=== PATIENT | female | born 1975 | race Caucasian/White ===

== ENCOUNTER → 2017-06-14 | Outpatient (CLI) | payer BC ==
[2015-05-02 06:23] VITALS: BP 141/85
--- NOTE | 2017-06-14 18:21 | RAD ---
3 views left foot radiograph 06/14/2017 Clinical indication: Nondisplaced fracture of the fifth metatarsal. Comparison: None. Findings: There is a nondisplaced transverse fracture at the base of the fifth metatarsal 2 cm from the proximal fifth metatarsal tuberosity. Joint spaces are maintained. There is mild soft tissue swelling about the foot. Impression: Nondisplaced transverse fracture at the base of the fifth metatarsal compatible with a Paige type fracture.
== END | disposition home or self-care (01) ==
LOC: RAD 13:27
PROVIDERS: ATTEND Nurse Practitioner Gerontology
DX: S92.355A Nondisplaced fracture of fifth metatarsal bone, left foot, initial encounter for closed fracture (principal); X58.XXXA Exposure to other specified factors, initial encounter; Y93.89 Activity, other specified; Y92.89 Other specified places as the place of occurrence of the external cause; Y99.8 Other external cause status
CPT/HCPCS: 73630

== ENCOUNTER 2019-05-30 07:28 | Emergency (ER) | payer BC ==
[~2019-05-30] VITALS: Ht 167.6 cm; Wt 133.8 kg
[2019-05-30 07:30] VITALS: BP 119/68
[2019-05-30] MEDS ORDERED: ALBU2.5V8 IH (09:04)
[2019-05-30] MEDS ORDERED: GUAI12003 PO (09:04)
[2019-05-30] MEDS ORDERED: AMOX1TAB61 PO (09:04)
--- NOTE | 2019-05-30 09:04 | PHYS DOC ---
Past Medical History Past Medical History: Arthritis Additional Past Medical Histor: PINCHED NERVE IN BACK Past Surgical History: Cholecystectomy Alcohol Use: None Drug Use: None Adult General Chief Complaint Chief Complaint: FLU SYMPTOM HPI HPI Patient is a 43 year old pacer congestion, rhinorrhea with cough for the past several days with persistent fatigue and increased shortness of breath for the past 2-4 days. Patient was diagnosed with flulike illness last week at urgent care. She has not been followed up with primary care physician. She denies grade fever or chest pain. No history of asthma. Patient recently discontinued smoking. Currently on menstrual period. [] Review of Systems Review of Systems Review of symptoms as per history of present illness. All other review symptoms are negative. All other systems were reviewed and found to be within normal limits, except as documented in this note. Allergies Allergies Allergies Coded Allergies Type Severity Reaction Last Updated Verified No Known Drug Allergies 05/02/15 No Physical Exam Physical Exam Constitutional: Well developed, well nourished, no acute distress, non-toxic appearance. [] HENT: Normocephalic, atraumatic, bilateral external ears normal, oropharynx moist, no oral exudates, nose normal. [] Eyes: PERRLA, EOMI, conjunctiva normal, no discharge. [] Neck: Normal range of motion, no tenderness, supple. [] Cardiovascular:Heart rate regular rhythm, no murmur [] Lungs & Thorax: Patient's nonlabored, coarse rales right lower lung mcghee.[] Abdomen: Bowel sounds normal, soft, no tenderness. [] Skin: Warm, dry, no erythema, no rash. [] Back: No tenderness, no CVA tenderness. [] Extremities: No tenderness, no cyanosis, no clubbing, ROM intact, no edema. [] Neurologic: Alert and oriented X 3, normal motor function, normal sensory function, no focal deficits noted. [] Psychologic: Affect normal, judgement normal, mood normal. [] Current Patient Data Vital Signs Vital Signs Date Time Temp Pulse Resp B/P (MAP) Pulse Ox O2 Delivery O2 Flow Rate FiO2 05/30/19 07:30 97.5 97 18 119/68 (85) 95 Room Air 97.5 EKG EKG [] Radiology/Procedures Radiology/Procedures [Chest x-ray: Right middle lobe infiltrate.] Course & Med Decision Making Course & Med Decision Making Pertinent Labs and Imaging studies reviewed. (See chart for details) [Post influenza lower respiratory tract infection. Recommendations are for antibiotics inhaler, Mucinex and PCP follow-up.] Mita Disclaimer Mita Disclaimer This electronic medical record was generated, in whole or in part, using a voice recognition dictation system. Departure Departure Impression: Primary Impression: Pneumonia Disposition: HOME, SELF-CARE Referrals: GEORGE CASH (PCP) Patient Instructions: Pneumonia, Adult Additional Instructions: Chest x-ray was performed and shows right lower lobe pneumonia. Please take antibiotics as directed and use Mucinex for cough and inhaler for shortness of breath. Follow-up with your PCP in 2-3 days for reevaluation. Return to the ED if new or worsening symptoms. Scripts Amoxicillin/Potassium Clav (AUGMENTIN 875-125 TABLET) 1 Each Tablet 1 TAB PO BID for 10 Days, #20 TAB 0 Refills Prov: HADLEY PACKER DO 05/30/19 Albuterol Sulfate (PROAIR HFA INHALER) 8.5 Gm Hfa.aer.ad 2 PUFF IH PRN Q4-6HRS PRN for wheezing for 21 Days, #1 INHALER 0 Refills Prov: HADLEY PACKER DO 05/30/19 Guaifenesin (MUCINEX) 1,200 Mg Tbmp.12hr 1 TAB PO BID for cough for 15 Days, #30 TAB 0 Refills Prov: HADLEY PACKER DO 05/30/19 HADLEY PACKER DO May 30, 2019 09:04
--- NOTE | 2019-05-30 09:35 | RAD ---
PA and lateral chest. HISTORY: Short of air, trouble breathing PA and lateral views were taken of the chest. There is mild atelectasis or infiltrate along the right diaphragm. Heart is normal in size. There is no pleural effusion. There are no other infiltrates. IMPRESSION: 1. Mild right lower lobe atelectasis or infiltrate. Electronically signed by: Winston Hampton MD (05/30/2019 9:32 AM) [id number]
== END 2019-05-30 09:23 | disposition home or self-care (01) ==
LOC: ER 07:28
DX: J18.9 Pneumonia, unspecified organism (principal)
CPT/HCPCS: 71046; 99284

== ENCOUNTER 2021-10-20 06:32 | Emergency (ER) | payer BC ==
[~2021-10-20] VITALS: Ht 167.6 cm; Wt 132.0 kg
[~2021-10-20 06:32] MED LIST: ALBU2.5V8 IH; AMOX1TAB61 PO; GUAI12003 PO
[2021-10-20] MEDS ORDERED: ASPIRIN CHEWABLE 81 MG TABLET. PO ONE (06:45)
[2021-10-20] MEDS ORDERED: IPRATRPIUM/ALBUTEROL 0.5/2.5MG 3 ML NEBU. NEB ONE (06:45)
[2021-10-20] MEDS ORDERED: IOHEXOL 350 MG/ML 100 ML VIAL. IV ONE (07:15)
[2021-10-20] MEDS ORDERED: CONTRAST GIVEN. MC PRN (07:30)
[2021-10-20 08:09] LABS: INFLUENZA A PATIENT NEGATIVE (NEGATIVE); INFLUENZA B PATIENT NEGATIVE (NEGATIVE)
[2021-10-20 08:17] LABS: GFR 59.4; POTASSIUM 4.4 mmol/L (3.5-5.1)
[2021-10-20 08:18] LABS: BASO # 0.1 x10^3/uL (0.0-0.2); BASO % 1 % (0-3); EOS # 0.1 x10^3/uL (0.0-0.7); EOS % 1 % (0-3); HEMATOCRIT 42.7 % (36.0-47.0); HEMOGLOBIN 13.9 g/dL (12.0-15.5); LYMPH # 2.1 x10^3/uL (1.0-4.8); LYMPH % 21 % (24-48); MEAN CORPUSCULAR HEMOGLOBIN 27 pg (25-35); MEAN CORPUSCULAR HGB CONC 33 g/dL (31-37); MEAN CORPUSCULAR VOLUME 84 fL (79-100); MONO # 0.6 x10^3/uL (0.0-1.1); MONO % 6 % (0-9); NEUT # 7.3 x10^3/uL (1.8-7.7); NEUT % 71 % (31-73); PLATELET COUNT 208 x10^3/uL (140-400); RED BLOOD COUNT 5.06 x10^6/uL (3.50-5.40); RED CELL DISTRIBUTION WIDTH 14.6 % (11.5-14.5); WHITE BLOOD COUNT 10.3 x10^3/uL (4.0-11.0)
[2021-10-20 08:23] LABS: ALBUMIN 3.4 g/dL (3.4-5.0); TOTAL BILIRUBIN 0.7 mg/dL (0.2-1.0); TOTAL PROTEIN 6.9 g/dL (6.4-8.2)
--- NOTE | 2021-10-20 09:22 | PHYS DOC ---
Past Medical History Past Medical History: Arthritis Additional Past Medical Histor: PINCHED NERVE IN BACK Past Surgical History: No Surgical History Smoking Status: Current Every Day Smoker Alcohol Use: None Drug Use: None Adult General Chief Complaint Chief Complaint: SHORTNESS OF BREATH HPI HPI Patient is a 45 year old female presents with shortness of breath for the last few days. Patient states that she was placed on antibiotics and steroids but really has not had any improvement. Past history is noted for recent left foot fracture, patient is wearing a walking boot. She has not had any increase in leg pain or leg swelling that she has noticed. She has had a mild nonproductive cough. Some chest discomfort with coughing. No fever. Review of Systems Review of Systems Constitutional: Denies fever Eyes: Denies change in visual acuity or eye pain HENT: Denies sore throat Respiratory: Reports shortness of breath Cardiovascular: Reports mild chest pain GI: Denies abd pain : Denies dysuria Musculoskeletal: Denies back or extremity injury acutely, subacute left foot injury Integument: Denies rash or skin lesions Neurologic: Denies headache, focal weakness or sensory changes All other systems were reviewed and found to be within normal limits, except as documented in this note. Current Medications Current Medications Current Medications Medications (Trade) Dose Ordered Sig/Anna Start Time Stop Time Status Last Admin Dose Admin Albuterol/ Ipratropium (Duoneb) 3 ml 1X ONCE 10/20/21 06:45 10/20/21 06:49 DC 10/20/21 07:16 3 ML Aspirin (Aspirin Chewable) 324 mg 1X ONCE 10/20/21 06:45 10/20/21 06:49 DC 10/20/21 07:19 324 MG Enoxaparin Sodium (Lovenox 150mg Syringe) 130 mg 1X ONCE 10/20/21 09:15 10/20/21 09:16 DC Info (CONTRAST GIVEN -- Rx MONITORING) 1 each PRN DAILY PRN 10/20/21 07:30 10/22/21 07:29 Iohexol (Omnipaque 350 Mg/ml) 100 ml 1X ONCE 10/20/21 07:15 10/20/21 07:22 DC 10/20/21 07:15 80 ML Allergies Allergies Allergies Coded Allergies Type Severity Reaction Last Updated Verified No Known Drug Allergies 10/20/21 No Physical Exam Physical Exam Constitutional: Well developed, well nourished, no acute distress, non-toxic appearance. HENT: Normocephalic, atraumatic, bilateral external ears normal, mucosa moist, nose normal. Eyes: EOMI, conjunctiva normal, no discharge. Neck: Normal range of motion, supple, no stridor, no meningeal signs. Cardiovascular: Regular rate and rhythm Lungs & Thorax: Bilateral breath sounds clear to auscultation Abdomen: Soft, no tenderness or obvious masses Skin: Warm, dry, no erythema, no rash. Extremities: No tenderness, no cyanosis, no clubbing, ROM intact, mild left lower extremity edema. Neurologic: Alert and oriented, normal motor function, normal sensory function, no focal deficits noted. Psychologic: Affect normal, judgement normal, mood normal. Current Patient Data Vital Signs Vital Signs Date Time Temp Pulse Resp B/P (MAP) Pulse Ox O2 Delivery O2 Flow Rate FiO2 10/20/21 07:17 94 Room Air 10/20/21 06:52 98.0 101 24 135/83 (100) 98.0 Lab Values Laboratory Tests Test 10/20/21 07:30 10/20/21 07:55 Influenza Type A Antigen Negative (NEGATIVE) Influenza Type B Antigen Negative (NEGATIVE) SARS-CoV-2 Antigen (Rapid) Negative (NEGATIVE) White Blood Count 10.3 x10^3/uL (4.0-11.0) Red Blood Count 5.06 x10^6/uL (3.50-5.40) Hemoglobin 13.9 g/dL (12.0-15.5) Hematocrit 42.7 % (36.0-47.0) Mean Corpuscular Volume 84 fL (79-100) Mean Corpuscular Hemoglobin 27 pg (25-35) Mean Corpuscular Hemoglobin Concent 33 g/dL (31-37) Red Cell Distribution Width 14.6 % (11.5-14.5) H Platelet Count 208 x10^3/uL (140-400) Neutrophils (%) (Auto) 71 % (31-73) Lymphocytes (%) (Auto) 21 % (24-48) L Monocytes (%) (Auto) 6 % (0-9) Eosinophils (%) (Auto) 1 % (0-3) Basophils (%) (Auto) 1 % (0-3) Neutrophils # (Auto) 7.3 x10^3/uL (1.8-7.7) Lymphocytes # (Auto) 2.1 x10^3/uL (1.0-4.8) Monocytes # (Auto) 0.6 x10^3/uL (0.0-1.1) Eosinophils # (Auto) 0.1 x10^3/uL (0.0-0.7) Basophils # (Auto) 0.1 x10^3/uL (0.0-0.2) Prothrombin Time 14.0 SEC (11.7-14.0) Prothrombin Time INR 1.1 (0.8-1.1) Activated Partial Thromboplast Time 30 SEC (24-38) Sodium Level 140 mmol/L (136-145) Potassium Level 4.4 mmol/L (3.5-5.1) Chloride Level 104 mmol/L (98-107) Carbon Dioxide Level 26 mmol/L (21-32) Anion Gap 10 (6-14) Blood Urea Nitrogen 17 mg/dL (7-20) Creatinine 1.0 mg/dL (0.6-1.0) Estimated GFR (Cockcroft-Gault) 59.4 BUN/Creatinine Ratio 17 (6-20) Glucose Level 125 mg/dL (70-99) H Lactic Acid Level 2.7 mmol/L (0.4-2.0) H Calcium Level 9.0 mg/dL (8.5-10.1) Total Bilirubin 0.7 mg/dL (0.2-1.0) Aspartate Amino Transferase (AST) 17 U/L (15-37) Alanine Aminotransferase (ALT) 24 U/L (14-59) Alkaline Phosphatase 167 U/L (46-116) H Troponin I High Sensitivity 40 ng/L (4-50) RL-Pyp-T-Type Natriuretic Peptide 4829 pg/mL (0-124) H Total Protein 6.9 g/dL (6.4-8.2) Albumin 3.4 g/dL (3.4-5.0) Albumin/Globulin Ratio 1.0 (1.0-1.7) Laboratory Tests 10/20/21 07:55 Laboratory Tests 10/20/21 07:55 EKG EKG Twelve-lead EKG demonstrates sinus rhythm with an overall rate 98. FL, QRS and QT corrected intervals are within normal limits. No ST segment elevation or depression. [] Radiology/Procedures Radiology/Procedures [] Impressions: Contrasted CT of the chest demonstrates bilateral pulmonary emboli Course & Med Decision Making Course & Med Decision Making Pertinent Labs and Imaging studies reviewed. (See chart for details) [] Is a 45-year-old female with dyspnea. CT demonstrates bilateral pulmonary emboli. She was given 132 mg of Lovenox subcu. Initially she [facility], there are no beds available there however. We will keep the patient here and continue to keep her anticoagulated, if things deteriorate then consider thrombolytics or thrombolysis, she is in guarded condition currently. Dragon Disclaimer Dragon Disclaimer This electronic medical record was generated, in whole or in part, using a voice recognition dictation system. Departure Departure Impression: Primary Impression: Pulmonary emboli Disposition: ADMITTED INPATIENT Condition: GUARDED Referrals: REEMA BENNETT III, MD (PCP) CLARY BARNES MD Oct 20, 2021 09:22
--- NOTE | 2021-10-20 09:43 | RAD ---
INDICATION: Reason: dyspnea, leg injury / Spl. Instructions: IV omni 350 80mls / History: COMPARISON: May 2019 chest x-ray TECHNIQUE: Axial CT images obtained through the chest. Intravenous contrast utilized. Angiogram 3D images proce ssed per protocol. One or more of the following individualized dose reduction techniques were utilized for this examinat ion: 1. Automated exposure control; 2. Adjustment of the mA and/or kV according to patient size; 3 . Use of iterative reconstruction technique. FINDINGS: Patchy nodular and groundglass opacities bilaterally. Large bilateral pulmonary embolus extending into the distal aspect of the bilateral main pulmonary ar teries. Proximal aspect of the right internal carotid artery is not well seen secondary to artifact extending through the region. Portion of ascending thoracic aorta limited by motion but no aneurysm or dissect ion flap in visualized portion. Suspected small hiatal hernia. There is some wall thickening of the distal esophagus. Degenerative changes of the spine. IMPRESSION: Large bilateral pulmonary embolus. Patchy nodular groundglass opacities in the bilateral lungs. Given the embolus its possible that a po rtion of this is secondary to pulmonary infarct but would also correlate with infectious symptoms sin ce infection could have this appearance as well. Additionally would obtain a follow-up after treatmen t to ensure this resolves to exclude any neoplastic nodule. Small hiatal hernia. There is wall thickening of the distal esophagus and hiatal hernia with possible causes including reflux or distal esophagitis but a distal esophageal wall mass cannot be excluded o n this examination. There is artifact at the neck base from the contrast bolus with no definite contrast seen within the lumen of the proximal right internal carotid artery but this is in the region of artifact. It may be helpful to obtain a carotid ultrasound to further assess and ensure that this is artifactual in natur e rather than from a high-grade stenosis or focal occlusion. Report called to the ER at 8:55 AM on date of exam. Electronically signed by: Bk Pritchard MD (10/20/2021 8:59 AM) [id number]
[2021-10-20] MEDS ORDERED: ACETAMINOPHEN 325 MG TABLET. PO PRN (10:45)
[2021-10-20] MEDS ORDERED: ONDANSETRON PF 4 MG/2 ML VIAL. IVP PRN (10:45)
[2021-10-20] MEDS ORDERED: fentaNYL PF VIAL 100 MCG/2 ML VIAL IVP PRN (10:45)
[2021-10-20] MEDS ORDERED: guaiFENesin DM 200MG/20MG 10 ML SYRUP PO PRN (10:45)
[2021-10-20] MEDS ORDERED: traMADol 50 MG TABLET PO PRN (10:45)
[2021-10-20] MEDS ORDERED: hydrALAZINE 20 MG/ML VIAL. IVP PRN (10:45)
--- NOTE | 2021-10-20 10:47 | PDOC1 ---
History and Physical Date of Admission Date of Admission DATE: 10/20/21 TIME: 10:46 Identification/Chief Complaint Chief Complaint Chest pain Source Source: Patient History of Present Illness History of Present Illness is a 45 year old female presents with shortness of breath for the last few days. Patient states that she was placed on antibiotics and steroids but really has not had any improvement. Past history is noted for recent left foot fracture, patient is wearing a walking boot. She has not had any increase in leg pain or leg swelling that she has noticed. She has had a mild nonproductive cough. Some chest discomfort with coughing. No fever. Current Problem List Problem List Problems Medical Problems: (1) Pulmonary emboli Status: Acute Current Medications Current Medications Current Medications Albuterol/ Ipratropium (Duoneb) 3 ml 1X ONCE NEB Last administered on 10/20/21at 07:16; Start 10/20/21 at 06:45; Stop 10/20/21 at 06:49; Status DC Aspirin (Aspirin Chewable) 324 mg 1X ONCE PO Last administered on 10/20/21at 07:19; Start 10/20/21 at 06:45; Stop 10/20/21 at 06:49; Status DC Iohexol (Omnipaque 350 Mg/ml) 100 ml 1X ONCE IV Last administered on 10/20/21at 07:15; Start 10/20/21 at 07:15; Stop 10/20/21 at 07:22; Status DC Info (CONTRAST GIVEN -- Rx MONITORING) 1 each PRN DAILY PRN MC SEE COMMENTS; Start 10/20/21 at 07:30; Stop 10/22/21 at 07:29 Enoxaparin Sodium (Lovenox 150mg Syringe) 130 mg 1X ONCE SQ Last administered on 10/20/21at 09:29; Start 10/20/21 at 09:15; Stop 10/20/21 at 09:16; Status DC Active Scripts Active Augmentin 875-125 Tablet (Amoxicillin/Potassium Clav) 1 Each Tablet 1 Tab PO BID 10 Days Proair Hfa Inhaler (Albuterol Sulfate) 8.5 Gm Hfa.aer.ad 2 Puff IH PRN Q4-6HRS PRN 21 Days Mucinex (Guaifenesin) 1,200 Mg Tbmp.12hr 1 Tab PO BID 15 Days Allergies Allergies: Coded Allergies: No Known Drug Allergies (Unverified , 3/22/22) Vitals Vitals Vital Signs Date Time Temp Pulse Resp B/P (MAP) Pulse Ox O2 Delivery O2 Flow Rate FiO2 10/20/21 09:42 92 96/61 (73) 95 Nasal Cannula 3.0 10/20/21 06:52 98.0 24 98.0 Labs Labs Laboratory Tests Test 10/20/21 07:30 10/20/21 07:55 Influenza Type A Antigen Negative (NEGATIVE) Influenza Type B Antigen Negative (NEGATIVE) SARS-CoV-2 Antigen (Rapid) Negative (NEGATIVE) White Blood Count 10.3 x10^3/uL (4.0-11.0) Red Blood Count 5.06 x10^6/uL (3.50-5.40) Hemoglobin 13.9 g/dL (12.0-15.5) Hematocrit 42.7 % (36.0-47.0) Mean Corpuscular Volume 84 fL (79-100) Mean Corpuscular Hemoglobin 27 pg (25-35) Mean Corpuscular Hemoglobin Concent 33 g/dL (31-37) Red Cell Distribution Width 14.6 % (11.5-14.5) Platelet Count 208 x10^3/uL (140-400) Neutrophils (%) (Auto) 71 % (31-73) Lymphocytes (%) (Auto) 21 % (24-48) Monocytes (%) (Auto) 6 % (0-9) Eosinophils (%) (Auto) 1 % (0-3) Basophils (%) (Auto) 1 % (0-3) Neutrophils # (Auto) 7.3 x10^3/uL (1.8-7.7) Lymphocytes # (Auto) 2.1 x10^3/uL (1.0-4.8) Monocytes # (Auto) 0.6 x10^3/uL (0.0-1.1) Eosinophils # (Auto) 0.1 x10^3/uL (0.0-0.7) Basophils # (Auto) 0.1 x10^3/uL (0.0-0.2) Prothrombin Time 14.0 SEC (11.7-14.0) Prothromb Time International Ratio 1.1 (0.8-1.1) Activated Partial Thromboplast Time 30 SEC (24-38) Sodium Level 140 mmol/L (136-145) Potassium Level 4.4 mmol/L (3.5-5.1) Chloride Level 104 mmol/L (98-107) Carbon Dioxide Level 26 mmol/L (21-32) Anion Gap 10 (6-14) Blood Urea Nitrogen 17 mg/dL (7-20) Creatinine 1.0 mg/dL (0.6-1.0) Estimated GFR (Cockcroft-Gault) 59.4 BUN/Creatinine Ratio 17 (6-20) Glucose Level 125 mg/dL (70-99) Lactic Acid Level 2.7 mmol/L (0.4-2.0) Calcium Level 9.0 mg/dL (8.5-10.1) Total Bilirubin 0.7 mg/dL (0.2-1.0) Aspartate Amino Transf (AST/SGOT) 17 U/L (15-37) Alanine Aminotransferase (ALT/SGPT) 24 U/L (14-59) Alkaline Phosphatase 167 U/L (46-116) Troponin I High Sensitivity 40 ng/L (4-50) OJ-Qpg-O-Type Natriuretic Peptide 4829 pg/mL (0-124) Total Protein 6.9 g/dL (6.4-8.2) Albumin 3.4 g/dL (3.4-5.0) Albumin/Globulin Ratio 1.0 (1.0-1.7) Laboratory Tests Test 10/20/21 07:30 10/20/21 07:55 Influenza Type A Antigen Negative (NEGATIVE) Influenza Type B Antigen Negative (NEGATIVE) SARS-CoV-2 Antigen (Rapid) Negative (NEGATIVE) White Blood Count 10.3 x10^3/uL (4.0-11.0) Red Blood Count 5.06 x10^6/uL (3.50-5.40) Hemoglobin 13.9 g/dL (12.0-15.5) Hematocrit 42.7 % (36.0-47.0) Mean Corpuscular Volume 84 fL (79-100) Mean Corpuscular Hemoglobin 27 pg (25-35) Mean Corpuscular Hemoglobin Concent 33 g/dL (31-37) Red Cell Distribution Width 14.6 % (11.5-14.5) Platelet Count 208 x10^3/uL (140-400) Neutrophils (%) (Auto) 71 % (31-73) Lymphocytes (%) (Auto) 21 % (24-48) Monocytes (%) (Auto) 6 % (0-9) Eosinophils (%) (Auto) 1 % (0-3) Basophils (%) (Auto) 1 % (0-3) Neutrophils # (Auto) 7.3 x10^3/uL (1.8-7.7) Lymphocytes # (Auto) 2.1 x10^3/uL (1.0-4.8) Monocytes # (Auto) 0.6 x10^3/uL (0.0-1.1) Eosinophils # (Auto) 0.1 x10^3/uL (0.0-0.7) Basophils # (Auto) 0.1 x10^3/uL (0.0-0.2) Prothrombin Time 14.0 SEC (11.7-14.0) Prothromb Time International Ratio 1.1 (0.8-1.1) Activated Partial Thromboplast Time 30 SEC (24-38) Sodium Level 140 mmol/L (136-145) Potassium Level 4.4 mmol/L (3.5-5.1) Chloride Level 104 mmol/L (98-107) Carbon Dioxide Level 26 mmol/L (21-32) Anion Gap 10 (6-14) Blood Urea Nitrogen 17 mg/dL (7-20) Creatinine 1.0 mg/dL (0.6-1.0) Estimated GFR (Cockcroft-Gault) 59.4 BUN/Creatinine Ratio 17 (6-20) Glucose Level 125 mg/dL (70-99) Lactic Acid Level 2.7 mmol/L (0.4-2.0) Calcium Level 9.0 mg/dL (8.5-10.1) Total Bilirubin 0.7 mg/dL (0.2-1.0) Aspartate Amino Transf (AST/SGOT) 17 U/L (15-37) Alanine Aminotransferase (ALT/SGPT) 24 U/L (14-59) Alkaline Phosphatase 167 U/L (46-116) Troponin I High Sensitivity 40 ng/L (4-50) AC-Wph-G-Type Natriuretic Peptide 4829 pg/mL (0-124) Total Protein 6.9 g/dL (6.4-8.2) Albumin 3.4 g/dL (3.4-5.0) Albumin/Globulin Ratio 1.0 (1.0-1.7) Justifications for Admission Other Justification ELI HINKLE MD Oct 20, 2021 10:47
[2021-10-20 11:42] VITALS: BP 114/73
[2021-10-20] MEDS ORDERED: PSYLLIUM HUSK (SUGAR FREE) 1 PKT PACKET PO SCH (21:00)
--- NOTE | 2021-10-22 10:46 | EKG ---
[facility] [address] [place] [id number] Test Date: 2021-10-20 Test Time: 06:45:00 Pat Name: SILVANO RAMIREZ Department: Room: Gender: F Compressor Battery Pellets: : 1975 Requested By: CLARY BARNES Order Number: [id number] Reading MD: Modesto Babcock MD Measurements Intervals [place] Rate: 98 P: 225 SC: 82 QRS: -43 QRSD: 84 T: 1 QT: 362 QTc: 464 Interpretive Statements SR LAD NON-SPECIFIC ST/T CHANGES POOR R WAVE PROGRESSION Electronically Signed On 10-27-2021 7:23:00 CDT by Modesto Babcock MD
== END 2021-10-20 12:57 | disposition admitted as inpatient to this hospital (09) ==
LOC: ER 06:32
DX: I26.99 Other pulmonary embolism without acute cor pulmonale (principal); R06.02 Shortness of breath; F17.200 Nicotine dependence, unspecified, uncomplicated
CPT/HCPCS: 36415; 71275; 80053; 83605; 83880; 84484; 85025; 85610; 85730; 87040; 87428; 93005; 94640; 96372; 99285; J1650; Q9967